=== PATIENT | male | born 1945 | race Two or more races ===

== ENCOUNTER 2023-02-27 17:10 | Inpatient (IN) | payer BC, OTHER ==
[~2023-02-27] VITALS: Ht 175.3 cm; Wt 69.7 kg
[2023-02-27 19:19] VITALS: O2SAT 96
[2023-02-27 19:45] VITALS: PULSE 86; RESP 31; O2SAT 96
[2023-02-27 19:52] LABS: Urine Bacteria NONE SEEN /hpf (None Seen); Urine Blood Negative /uL (Negative); Urine Clarity Clear (Clear); Urine Color Yellow (Yellow); Urine Hyaline Cast FEW /lpf (0 - 2); Urine Mucus FEW (None Seen); Urine Protein, UAD TRACE (Negative); Urine Specific Gravity 1.017 (1.001-1.035); Urine WBC <1 /hpf (0 - 3); Urine pH 6.5 (5.0-8.0)
[2023-02-27 20:00] VITALS: PULSE 81
[2023-02-27 20:05] LABS: Basophils # (auto) 0 10 ^3/uL (0-0.2); Eosinophils # (auto) 0.2 10 ^3/uL (0-0.8); Eosinophils % (auto) 2.1 % (0.0-7.0); Hematocrit 35.4 % (41.0-53.0); Hemoglobin 11.4 g/dL (13.5-17.5); Lymphocytes # (auto) 1.3 10 ^3/uL (0.4-5.4); Lymphocytes % (auto) 14.1 % (10.0-50.0); Mean Corpuscular Hgb Conc. 32.3 g/dL (32.0-36.0); Mean Corpuscular Volume 89.8 fL (80.0-100.0); Monocytes # (auto) 1.3 10 ^3/uL (0-1.3); Monocytes % (auto) 14.3 % (0.0-12.0); Neutrophils # (auto) 6.3 10 ^3/uL (1.6-8.6); Neutrophils % (auto) 69.5 % (37.0-80.0); Nucleated Red Blood Cells % 0.1 %; Red Blood Cells 3.94 10^6/uL (4.5-5.90); Red Cell Distribution Width 18.5 % (11.8-14.3); White Blood Cell 9.1 10^3/uL (4.4-10.8)
[2023-02-27 20:25] LABS: INR 1.04 (0.9-1.15); Partial Thromboplastin Time 29.1 SEC (24.5-34.5); Prothrombin Time 10.9 sec (9.3-11.8)
[2023-02-27 20:28] LABS: Alanine Aminotransferase 13 U/L (7-40); Albumin 3.6 g/dL (3.2-4.8); Alkaline Phosphatase 164 U/L (46-116); Anion Gap 7 (5-15); Aspartate Aminotransferase 11 U/L (13-40); BUN/Creatinine Ratio 18.1 (10.0-20.0); Bilirubin, Total 0.5 mg/dL (0.2-1.0); Blood Urea Nitrogen 21 mg/dL (9-23); Calcium 9.1 mg/dL (8.7-10.4); Carbon Dioxide 29 mmol/L (20-30); Chloride 105 mmol/L (98-107); Glucose 109 mg/dL (74-106); Magnesium 1.7 mg/dL (1.6-2.6); Potassium 3.8 mmol/L (3.5-5.1); Sodium 141 mmol/L (136-145); Total Protein 7.1 g/dL (5.7-8.2)
[2023-02-27] MEDS ORDERED: ACETAMINOPHEN 325 MG TAB PO PRN (23:00)
[2023-02-27] MEDS ORDERED: DOCUSATE SOD 100 MG CAP PO PRN (23:00)
[2023-02-27] MEDS ORDERED: MORPHINE SULFATE INJ 2 MG/ml SYRG IV PRN (23:00)
[2023-02-27] MEDS ORDERED: NITROGLYCERIN 0.4 MG SL TAB SL PRN (23:00)
[2023-02-27] MEDS ORDERED: ONDANSETRON HCL 4 MG/2 ML VIAL IV PRN (23:00)
[2023-02-27] MEDS ORDERED: hydrALAZINE HCL 20 MG/ML VL IV PRN (23:00)
[2023-02-28] MEDS ORDERED: IOHEXOL 350 MG/ML 100ML IJ ONE (03:44)
[2023-02-28 05:25] LABS: Basophils # (auto) 0.1 10 ^3/uL (0-0.2); Basophils % (auto) 1.2 % (0.0-2.0); Eosinophils # (auto) 0.4 10 ^3/uL (0-0.8); Eosinophils % (auto) 4.6 % (0.0-7.0); Hematocrit 33.9 % (41.0-53.0); Hemoglobin 11.1 g/dL (13.5-17.5); Lymphocytes # (auto) 0.7 10 ^3/uL (0.4-5.4); Mean Corpuscular Hemoglobin 29.4 pg (28.0-32.0); Mean Corpuscular Hgb Conc. 32.8 g/dL (32.0-36.0); Mean Corpuscular Volume 89.6 fL (80.0-100.0); Monocytes # (auto) 0.8 10 ^3/uL (0-1.3); Monocytes % (auto) 9.5 % (0.0-12.0); Neutrophils # (auto) 6.1 10 ^3/uL (1.6-8.6); Neutrophils % (auto) 75.7 % (37.0-80.0); Nucleated Red Blood Cells % 0.1 %; Red Blood Cells 3.79 10^6/uL (4.5-5.90); Red Cell Distribution Width 18.2 % (11.8-14.3)
[2023-02-28 05:46] LABS: Albumin 3.5 g/dL (3.2-4.8); Alkaline Phosphatase 143 U/L (46-116); Anion Gap 6 (5-15); Aspartate Aminotransferase 9 U/L (13-40); BUN/Creatinine Ratio 17.8 (10.0-20.0); Blood Urea Nitrogen 21 mg/dL (9-23); Carbon Dioxide 28 mmol/L (20-30); Chloride 106 mmol/L (98-107); Glucose 121 mg/dL (74-106); Potassium 3.9 mmol/L (3.5-5.1); Sodium 140 mmol/L (136-145)
[2023-02-28 05:47] LABS: Bilirubin, Total 0.5 mg/dL (0.2-1.0); Total Protein 7.1 g/dL (5.7-8.2)
[2023-02-28 05:48] LABS: Alanine Aminotransferase 9 U/L (7-40)
[2023-02-28] MEDS: SODIUM CHLOR 0.9% PF (SALINE LOCK) 10ML VIAL/SYR IV SCH ×3 (06:12→21:42)
[2023-02-28 08:00] VITALS: PULSE 96; RESP 31; O2SAT 96
[2023-02-28] MEDS: FAMOTIDINE (10MG/ML) 2ML VL IV SCH ×2 (10:12→21:39)
[2023-02-28] MEDS: amLODIPine BESYLATE 5 MG TAB PO SCH (10:12)
[2023-02-28 15:15] VITALS: BP 142/84; PULSE 91; RESP 20; TEMP 98; O2SAT 98
[2023-02-28 17:00] VITALS: BP 132/69; PULSE 80; RESP 16; TEMP 98.1; O2SAT 94
[2023-02-28] MEDS: HYDROcodone-ACET 5/325MG TAB PO PRN (18:30)
[2023-02-28 20:00] VITALS: BP 168/84; PULSE 81; TEMP 36.7
[2023-02-28 22:00] VITALS: BP 124/73; PULSE 89; RESP 19; TEMP 98.7; O2SAT 97
[2023-03-01] VITALS (7 sets, daily range): BP systolic 122–150; BP diastolic 70–83; PULSE 77–89; RESP 18; TEMP 97.6–98.2; O2SAT 100
[2023-03-01] MEDS: SODIUM CHLOR 0.9% PF (SALINE LOCK) 10ML VIAL/SYR IV SCH ×2 (06:41→14:00)
[2023-03-01] MEDS: HYDROcodone-ACET 5/325MG TAB PO PRN (08:29)
[2023-03-01] MEDS: FAMOTIDINE (10MG/ML) 2ML VL IV SCH (09:11)
[2023-03-01] MEDS: amLODIPine BESYLATE 5 MG TAB PO SCH (09:11)
== END 2023-03-01 15:51 | disposition home or self-care (01) | DRG 151 ==
LOC: EDBD 17:10 → ER 17:10 → TELE 22:54 → TELE-WESTW 02-28 15:18
PROVIDERS: ADMIT Nurse Practitioner Family; ATTEND Nurse Practitioner Family
DX: R04.0 Epistaxis (principal); K92.0 Hematemesis; I10 Essential (primary) hypertension; R79.89 Other specified abnormal findings of blood chemistry; Z79.82 Long term (current) use of aspirin; Z88.1 Allergy status to other antibiotic agents
CPT/HCPCS: 36415; 71045; 71275; 74176; 80053; 81001; 83605; 83735; 83880; 84484; 85025; 85379; 85610; 85730; 86850; 86900; 86901; 87040; 87077; 87186; 93005; 97163; G0378; J3490

== ENCOUNTER 2023-04-29 14:58 | Emergency (ER) | payer BC ==
[~2023-04-29] VITALS: Ht 188 cm; Wt 91.0 kg
[2023-04-29 18:04] VITALS: BP 151/98; PULSE 95; RESP 20; O2SAT 98
== END 2023-04-29 18:30 | disposition left against medical advice (07) ==
LOC: EDBD 14:58 → ER 14:58
DX: R06.02 Shortness of breath (principal); Z53.21 Procedure and treatment not carried out due to patient leaving prior to being seen by health care provider